=== PATIENT | male | born 1960 | race Asian ===

== ENCOUNTER 2016-10-24 01:17 | Emergency (ER) | payer OTHER ==
[2016-10-24 01:24] VITALS: BP 155/108; PULSE 93; RESP 18; TEMP 97.7; O2SAT 95
--- NOTE | 2016-10-24 01:30 | EDPHY ---
H & P Stated Complaint: swelling and painful ambulation to right foot HPI/ROS: HPI CHIEF COMPLAINT: Right foot pain HISTORY OF PRESENT ILLNESS: This patient very pleasant 56-year-old male significant past medical history for AFib on Coumadin, presents to the emergency room with right great toe swelling, pain and redness times 24 hours. He tells me was unable to sleep tonight was throbbing. No fever. Denies trauma. No redness or streaking up his leg. No history of gout. No history of arthritis. No history of DVT or PE. he tells me that he came to the emergency room tonight because he could not sleep due to the throbbing pain in the right great toe. Past Medical History: AFib on Coumadin Past Surgical History: No recent surgical history Social History: Denies use of drugs alcohol tobacco products lives locally. Family History: Noncontributory ROS REVIEW OF SYSTEMS: A comprehensive 10 point review of systems is otherwise negative aside from elements mentioned in the history of present illness. Exam Constitutional triage nursing summary reviewed, vital signs reviewed, awake/ alert. Eyes normal conjunctivae and sclera, EOMI, PERRLA. HENT normal inspection, atraumatic, moist mucus membranes, no epistaxis, neck supple/ no meningismus, no raccoon eyes. Respiratory clear to auscultation bilaterally, normal breath sounds, no respiratory distress, no wheezing. Cardiovascular rate normal, regular rhythm, no murmur, no edema, distal pulses normal. Gastrointestinal soft, non-tender, no rebound, no guarding, normal bowel sounds, no distension, no pulsatile mass. Genitourinary no CVA tenderness. Musculoskeletal right foot: neurovascularly intact good cap refill, good pulse. Is noted there is redness to the 1st MTP joint, swelling and warmth present, there is no streaking, he is neurovascularly intact, tender palpation over the 1st MTP no midline vertebral tenderness, full range of motion, no calf swelling, no tenderness of extremities, no meningismus, good pulses, neurovascularly intact. Skin pink, warm, & dry, no rash, skin atraumatic. Neurologic awake, alert and oriented x 3, AAOx3, moves all 4 extremities equally, motor intact, sensory intact, CN II-XII intact, normal cerebellar, normal vision, normal speech. Psychiatric normal mood/affect. Heme/Lymph/Immune no lymphadenopathy. Differential Diagnosis: Includes but is not limited to in a particular order acute gout attack, gouty arthritis, pseudogout, doubt septic joint, doubt cellulitis Medical Decision Making: plan for this patient x-ray right foot, then will start on indomethacin. Close podiatry follow-up. He understands to refrain from drinking alcohol reading high meet contact and to reduce his purines. Keep his foot elevated, take indomethacin as prescribed. Follow up with Podiatry. Re-evaluation: ED x-ray right foot: No acute fracture visualized. Image interpreted myself. Source: Patient - Personal History Current Tetanus/Diphtheria Vaccine: Unsure Current Tetanus Diphtheria and Acellular Pertussis (TDAP): Unsure - Medical/Surgical History Hx Asthma: No Hx Chronic Respiratory Disease: No Hx Diabetes: No Hx Cardiac Disease: Yes Hx Renal Disease: No Hx Cirrhosis: No Hx Alcoholism: No Hx HIV/AIDS: No Hx Splenectomy or Spleen Trauma: No Other PMH: irregular heartbeat, - Social History Smoking Status: Never smoked Constitutional: Initial Vital Signs Temperature (C) 36.5 C 10/24/16 01:19 Heart Rate 93 10/24/16 01:19 Respiratory Rate 18 10/24/16 01:19 Blood Pressure 155/108 H 10/24/16 01:19 O2 Sat (%) 95 10/24/16 01:19 O2 Delivery Mode Room Air Allergies/Adverse Reactions: No Known Allergies Allergy (Verified 01/03/15 11:33) Home Medications: Medication Instructions Recorded Indomethacin [Indocin 25 mg (*)] 25 mg PO BID #14 cap 10/24/16 Departure - Departure Disposition: Home, Routine, Self-Care Clinical Impression: Gout attack Qualifiers: Gout site: foot Gout etiology: unspecified cause Laterality: right Qualified Code(s): M10.9 - Gout, unspecified Condition: Good Instructions: Low Purine Diet (ED), Gout (ED) Additional Instructions: 1. Please keep her foot elevated. 2. please alleviate trauma to your foot. 3. take pain medicine as prescribed. 4. follow-up with Podiatry the foot doctor. Referrals: NONE *PRIMARY CARE P,. [Primary Care Provider] - As per Instructions Mika Buenrostro MD [Doctor of Podiatric Medicine] - As per Instructions Prescriptions: Indomethacin [Indocin 25 mg (*)] 25 mg PO BID #14 cap
[2016-10-24] MEDS ORDERED: INDOMETHACIN 25 MG CAP PO ONE (01:41)
== END 2016-10-24 02:16 | disposition home or self-care (01) ==
DX: M10.9 Gout, unspecified (principal); Z79.01 Long term (current) use of anticoagulants

== ENCOUNTER 2016-10-29 22:42 | Emergency (ER) | payer OTHER ==
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
[2016-10-29 22:59] VITALS: BP 161/100; PULSE 57; RESP 16; TEMP 97.9; O2SAT 97
== END 2016-10-29 22:59 | disposition home or self-care (01) ==
DX: Z04.3 Encounter for examination and observation following other accident (principal); V89.2XXA Person injured in unspecified motor-vehicle accident, traffic, initial encounter; Y92.410 Unspecified street and highway as the place of occurrence of the external cause

== ENCOUNTER 2016-12-10 10:46 | Day surgery (SDC) | payer OTHER ==
[2016-12-10] MEDS ORDERED: BENZOCAINE UNIT DOSE SPRAY HURRICAINE MM ONE (10:50)
[2016-12-10] MEDS ORDERED: PROPOFOL 200 MG/20 ML VIAL IVP ONE (10:50)
[2016-12-10] MEDS ORDERED: NS 500 ML IV ONE (10:50)
[2016-12-10] MEDS ORDERED: fentaNYL 100 MCG/2 ML INJ IVP ONE (10:50)
[2016-12-10] MEDS ORDERED: MIDAZOLAM 2 MG/2 ML VIAL IVP ONE (10:50)
--- NOTE | 2016-12-10 11:18 | CPEKG ---
Heart Rate: 81 RR Interval: 741 QRSD Interval: 86 QT Interval: 404 QTC Interval: 469 QRS [place]: 69 T Wave [place]: 38 EKG Severity - ABNORMAL ECG - EKG Impression: ATRIAL FIBRILLATION, V-RATE 58-99 Electronically Signed By: Jamal Hassan 10-Dec-2016 12:55:43
[2016-12-10 11:42] LABS: APTT 31.1 SEC (23.0-38.0); INR 1.29 (0.83-1.16); PROTIME(PATIENT) 16.1 SEC (12.0-15.0)
[2016-12-10 12:01] LABS: ANION GAP 11 mEq/L (8-16); CARBON DIOXIDE 24 mEq/l (22-31); CHLORIDE 107 mEq/L (97-110); CREATININE 0.9 mg/dL (0.7-1.3); GLOMERULAR FILTRATION RATE > 60; GLUCOSE 81 mg/dL (70-100); MAGNESIUM 2.1 mg/dL (1.6-2.3); POTASSIUM 3.9 mEq/L (3.5-5.2); SODIUM 142 mEq/L (134-144)
--- NOTE | 2016-12-10 17:11 | EPPROC ---
Electrophysiology Procedure Note: Procedure: CV Indication: AF Procedure: Anesthesiologist provided general anesthesia. ALEXIS performed and dictated separately. One LA clot ruled out, 200J of synchronized DCCV given. Pt converted to SR and the went back into AF. Another 200J of synchronized DCCV given. Once again pt converted to SR and then went back into AF. Conclusion: Unsuccessful CV
--- NOTE | 2016-12-11 09:29 | ECHO ---
[id number] + + [address] : : [facility] [address] : : [phone] + + Transesophageal Echocardiographic Report + ------+ :Name: ADI AVALOS SStudy Date: 12/10/2016 11:45 AM : : Hospital Admission Number: [id number] Locatio n: CVC: :: 1960 Gender: Male : :Age: 56 yrs Race: : :Reason For Study: Eval LV Fx : :History: New onset A-fib : + ------+ Left Ventricle The left ventricular ejection fraction is normal. Atria No left atrial mass or thrombus visualized. No thrombus is detected in the left atrial appendage. Mitral Valve There is mild mitral regurgitation. Conclusion A 2D transesophageal echocardiogram with color flow Doppler was performed. The left ventricular ejection fraction is normal. No left atrial mass or thrombus visualized. No thrombus is detected in the left atrial appendage. There is mild mitral regurgitation. Final Reading Physician: Agueda Mccoy signed on 12/11/2016 09:28 AM Ordering Physician: Jamal Hassan Performed By: Jamal Hassan MD
== END 2016-12-10 14:35 | disposition home or self-care (01) ==
LOC: FCATH 10:46
PROVIDERS: ATTEND Internal Medicine Cardiovascular Disease
PROC: B245ZZ4 Ultrasonography of Left Heart, Transesophageal (ICD-10-PCS; principal; 2016-12-10)
PROC: 5A2204Z Restoration of Cardiac Rhythm, Single (ICD-10-PCS; principal; 2016-12-10)
DX: I48.1 Persistent atrial fibrillation (principal); R94.31 Abnormal electrocardiogram [ECG] [EKG]; E78.5 Hyperlipidemia, unspecified; I10 Essential (primary) hypertension; E66.3 Overweight; Z68.29 Body mass index [BMI] 29.0-29.9, adult; Z79.01 Long term (current) use of anticoagulants; Z86.718 Personal history of other venous thrombosis and embolism
CPT/HCPCS: J2704